=== PATIENT | male | born 1980 | race Caucasian/White ===

== ENCOUNTER 2022-08-12 19:27 | Emergency (ER) | payer OTHER ==
[~2022-08-12] VITALS: Ht 198.1 cm; Wt 241.3 kg
[~2022-08-12 19:27] MED LIST: ALBU90OI INH; HYDMOR4; NAPR500 PO; PERIDEX15 ML MM; SODFLU2.2 PO; SPIHYD PO; Zofran Odt8 MG SL
== END 2022-08-12 19:48 | disposition home or self-care (01) ==
LOC: ER 19:27
DX: F32.A Depression, unspecified (principal); Z79.899 Other long term (current) drug therapy
CPT/HCPCS: 99283

== ENCOUNTER 2023-05-22 05:30 | Emergency (ER) | payer OTHER ==
[~2023-05-22] VITALS: Ht 198.1 cm; Wt 240.4 kg
[~2023-05-22 05:30] MED LIST changes: +ALOGLIPTIN25 M1 PO; +ATOR20 PO; +B-121000 MC3 PO; +Bactrim Ds Tab1 EACH PO; +CARV6.25 PO; +Glucophage 850850 MG PO; +JARDIANCE25 MG PO; +Lisinopril-Hct1 EAC4 PO; +SPIR25 PO
[2023-05-22 06:29] LABS: BASOPHILS ABSOLUTE AUTO 0.06 K/mm3 (0.00-0.23); BASOPHILS PERCENT AUTO 1 % (0-2); EOSINOPHILS ABSOLUTE AUTO 0.76 K/mm3 (0.00-0.68); EOSINOPHILS PERCENT AUTO 8 % (0-6); Hematocrit 43.9 % (37.0-53.0); Hemoglobin 14.3 g/dL (13.5-17.5); IMMATURE GRAN ABSOLUTE AUTO 0.04 K/mm3 (0.00-0.10); IMMATURE GRAN PERCENT AUTO 0 % (0-1); LYMPHOCYTES ABSOLUTE AUTO 2.26 K/mm3 (0.84-5.20); LYMPHOCYTES PERCENT AUTO 22 % (21-46); MONOCYTES ABSOLUTE AUTO 0.91 K/mm3 (0.16-1.47); MONOCYTES PERCENT AUTO 9 % (4-13); Mean Corpuscular HGB 28.8 pg (26.0-34.0); Mean Corpuscular HGB Conc 32.6 g/dL (31.5-36.5); Mean Corpuscular Volume 88 fL (80-100); Mean Platelet Volume 10.7 fL (9.1-12.4); NEUTROPHILS ABSOLUTE AUTO 6.15 K/mm3 (1.96-9.15); NEUTROPHILS PERCENT AUTO 60 % (41-73); Platelet Count 249 K/mm3 (150-400); RDW Coefficient Variation 13.9 % (11.7-14.2); RDW Standard Deviation 44.3 fL (35.1-46.3); Red Blood Cell Count 4.97 M/mm3 (4.30-5.90); White Blood Cell Count 10.18 K/mm3 (4.00-11.30)
[2023-05-22 06:36] LABS: Albumin, Blood 3.5 g/dL (3.4-5.0); Albumin/Globulin Ratio 0.8 (0.8-1.8); Bilirubin, Total 0.4 mg/dL (0.1-1.0); Bun/Creatinine Ratio 19.2 (12.0-20.0); C-REACTIVE PROTEIN, EXT RANGE 1.07 mg/dL (0.000-0.300); Calcium, Blood 8.9 mg/dL (8.5-10.1); Creatinine, Blood 0.89 mg/dL (0.60-1.20); Globulin, Blood 4.2 g/dL (2.2-4.0); Total Protein, Blood 7.7 g/dL (6.4-8.2)
[2023-05-22 07:14] LABS: Source, Urine Clean Catch
[2023-05-22 07:19] LABS: Appearance, Urine Clear (Clear); Bilirubin, Urine Neg (Neg); Blood, Urine Neg (Neg); Color, Urine Yellow (P-Yellow); Glucose Qualitative, Urine 4+ (Neg); Ketones, Urine Neg (Neg); Leukocyte Esterase, Urine Neg (Neg); Nitrite, Urine Neg (Neg); Protein, Urine Neg (Neg); Urobilinogen, Urine NORM (Normal)
[2023-05-22] MEDS ORDERED: Naproxen375 MG PO (07:34)
[2023-05-22 07:35] VITALS: BP 158/80
== END 2023-05-22 08:52 | disposition home or self-care (01) ==
LOC: ER 05:30
PROVIDERS: Emergency Medicine
DX: T14.8XXA Other injury of unspecified body region, initial encounter (principal); M25.551 Pain in right hip; R10.31 Right lower quadrant pain; X58.XXXA Exposure to other specified factors, initial encounter; J45.909 Unspecified asthma, uncomplicated; Z88.6 Allergy status to analgesic agent; Z79.899 Other long term (current) drug therapy; Z79.84 Long term (current) use of oral hypoglycemic drugs
CPT/HCPCS: 73502; 76857; 80053; 81003; 85025; 86140; 96374; 99284-25; J1885